=== PATIENT | female | born 1990 | race Caucasian/White ===

== ENCOUNTER 2019-04-28 11:02 | Emergency (ER) | payer MEDICAID ==
[~2019-04-28] VITALS: Ht 154.9 cm; Wt 88.5 kg
[2019-04-28 11:06] VITALS: Ht 154.9 cm; Wt 88.5 kg
[2019-04-28 11:57] LABS: CALCIUM 8.1 mg/dL (8.5-10.1); CARBON DIOXIDE 24.4 mmol/L (21-32); CHLORIDE SERUM 100 mmol/L (98-107); CREATININE SERUM 0.7 mg/dL (0.6-1.0); GFR1 > 60 mL/min; GLUCOSE SERUM 98 mg/dL (74-106); POTASSIUM SERUM 3.6 mmol/L (3.5-5.1); SODIUM SERUM 135 mmol/L (136-145)
[2019-04-28 11:59] LABS: ALBUMIN 3.4 g/dL (3.4-5.0); ALKALINE PHOSPHATASE 150 U/L (46-116); ALT/SGPT 38 U/L (14-59); AST/SGOT 39 U/L (15-37); BILIRUBIN TOTAL 0.46 mg/dL (0.20-1.00); CHOLESTEROL 161 mg/dL (<200); HDL CHOLESTEROL 46 mg/dL (40-60); LIPASE 56 IU/L (73-393); MAGNESIUM 2.3 mg/dL (1.8-2.4); T4(THYROXINE) 7.7 ug/dL (4.7-13.3)
[2019-04-28 12:00] LABS: TOTAL PROTEIN, SERUM 8.3 g/dL (6.4-8.2)
[2019-04-28 12:31] LABS: BASOPHIL % 0.1 % (0-2); PLATELET COUNT 295 x10^3mcL (130-400); RED CELL DISTRIBUTION WIDTH 13.6 % (11.5-14.5)
[2019-04-28 12:38] LABS: UA SPECIFIC GRAVITY 1.025 (1.005-1.035); microscopic required? YES; urine erythrocyte 2+ (NEGATIVE)
[2019-04-28 12:45] LABS: AMPHETAMINE QUAL UR POSITIVE (See below)
[2019-04-28 16:27] VITALS: BP 128/84
== END 2019-04-28 16:27 | disposition home or self-care (01) ==
LOC: ED 11:02
PROVIDERS: Emergency Medicine
DX: N39.0 Urinary tract infection, site not specified (principal); F15.93 Other stimulant use, unspecified with withdrawal; F10.20 Alcohol dependence, uncomplicated; Y90.0 Blood alcohol level of less than 20 mg/100 ml; F32.9 Major depressive disorder, single episode, unspecified; F41.9 Anxiety disorder, unspecified; F43.10 Post-traumatic stress disorder, unspecified; F17.210 Nicotine dependence, cigarettes, uncomplicated; E66.9 Obesity, unspecified; Z68.36 Body mass index [BMI] 36.0-36.9, adult; Z59.0 Homelessness; X58.XXXA Exposure to other specified factors, initial encounter; Y93.89 Activity, other specified; Y92.89 Other specified places as the place of occurrence of the external cause; Y99.8 Other external cause status
CPT/HCPCS: 82962; 99406; G0480; J0696; J2060; J7030; J7060; Q0092

== ENCOUNTER 2019-05-08 12:16 | Emergency (ER) | payer MEDICAID ==
[~2019-05-08] VITALS: Ht 154.9 cm; Wt 88.5 kg
[2019-05-08 12:21] VITALS: Ht 154.9 cm; Wt 88.5 kg
[2019-05-08 13:29] LABS: UA SPECIFIC GRAVITY >=1.030 (1.005-1.035); microscopic required? YES; urine erythrocyte 3+ (NEGATIVE)
[2019-05-08 13:59] VITALS: BP 101/60
== END 2019-05-08 14:04 | disposition home or self-care (01) ==
LOC: ED 12:16
PROVIDERS: Emergency Medicine
DX: N39.0 Urinary tract infection, site not specified (principal); F41.9 Anxiety disorder, unspecified; F32.9 Major depressive disorder, single episode, unspecified
CPT/HCPCS: J1885

== ENCOUNTER 2019-05-19 08:33 | Emergency (ER) | payer MEDICAID ==
[~2019-05-19] VITALS: Ht 154.9 cm; Wt 86.6 kg
[2019-05-19 09:01] VITALS: Ht 154.9 cm; Wt 86.6 kg
[2019-05-19 14:08] VITALS: BP 114/72
== END 2019-05-19 14:43 | disposition home or self-care (01) ==
LOC: ED 08:33
DX: N39.0 Urinary tract infection, site not specified (principal); F41.9 Anxiety disorder, unspecified; F32.9 Major depressive disorder, single episode, unspecified; F15.10 Other stimulant abuse, uncomplicated
CPT/HCPCS: 87491; 87591

== ENCOUNTER 2019-10-09 17:05 | Emergency (ER) | payer MEDICAID ==
[~2019-10-09] VITALS: Ht 154.9 cm; Wt 87.5 kg
[2019-10-09 17:16] VITALS: Ht 154.9 cm; Wt 87.5 kg
[2019-10-09 19:20] VITALS: BP 108/78
== END 2019-10-09 19:20 | disposition home or self-care (01) ==
LOC: ED 17:05
DX: A54.9 Gonococcal infection, unspecified (principal); Z88.1 Allergy status to other antibiotic agents; F17.210 Nicotine dependence, cigarettes, uncomplicated
CPT/HCPCS: 82962; J1580